=== PATIENT | male | born 1995 | race African-American/Black ===

== ENCOUNTER 2019-06-06 23:35 | Emergency (ER) | payer SELFPAY ==
[2019-06-07] MEDS: IBUPROFEN 600 MG TAB PO (01:05)
[2019-06-07] MEDS: LIDOCAINE 1% (MDV) 20 ML INJ SC (01:05)
== END 2019-06-07 02:24 | disposition home or self-care (01) ==
LOC: FTE 23:35
DX: L02.412 Cutaneous abscess of left axilla (principal)
CPT/HCPCS: 10060; 99283-25